=== PATIENT | female | born 1950 | race Caucasian/White ===

== ENCOUNTER 2016-03-31 14:06 | Outpatient (CLI) | payer OTHER | END 2016-03-31 14:07 | disposition home or self-care (01) | DX: Z12.31 Encounter for screening mammogram for malignant neoplasm of breast (principal); Z98.82 Breast implant status ==

== ENCOUNTER 2016-09-23 13:43 | Outpatient (CLI) | payer OTHER | END 2016-09-23 13:44 | disposition home or self-care (01) | LOC: LAB.F 13:43 | PROVIDERS: ATTEND Family Medicine | DX: Z11.59 Encounter for screening for other viral diseases (principal) | CPT/HCPCS: 36415; 86317 ==

== ENCOUNTER 2018-07-13 14:38 | Outpatient (CLI) | payer MEDICARE ==
--- NOTE | 2018-07-16 08:59 | Mammography Report ---
Reason: SCREENING MAMMO Procedure Date: 07/13/2018 Accession Number: [id number] / [id number] Procedure: MGN - Screening Mammo Dig w/Implants CPT Code: FULL RESULT: EXAM: Screening Mammo Dig w/Implants DATE: 07/13/2018 3:17 PM CLINICAL HISTORY: Screening encounter. History of bilateral silicone implant, placed in 1990. TECHNIQUE: (B) - Bilateral CC and MLO views were obtained. All views were obtained in standard and implant displaced fashion. COMPARISON: 03/31/2016 through 07/07/2011 PARENCHYMAL PATTERN: (A) - The breast(s) demonstrate(s) scattered fibroglandular densities. FINDINGS: Bilateral silicone implants are redemonstrated and stable in shape. There are no suspicious masses, calcifications, or areas of distortion. IMPRESSION: Benign findings. BI-RADS category 2. RECOMMENDATION: (ANNUAL) - Recommend routine annual screening mammography. BI-RADS CATEGORY: (2) - Benign Findings. STANDARD QUALIFYING STATEMENTS: 1. This examination was not reviewed with the aid of Computer-Aided Detection (CAD). 2. A negative or benign imaging report should not preclude biopsy if clinically suspicious findings are present. 3. Dense breasts may obscure an underlying neoplasm. 4. This examination was reviewed without the aid of 3D breast imaging (tomosynthesis).
== END 2018-07-13 14:39 | disposition home or self-care (01) ==
LOC: DI.N 14:38
DX: Z12.31 Encounter for screening mammogram for malignant neoplasm of breast (principal); Z98.82 Breast implant status
CPT/HCPCS: 77067

== ENCOUNTER 2018-11-09 10:45 | Outpatient (CLI) | payer MEDICARE ==
--- NOTE | 2018-11-13 11:53 | DEXA Report ---
Reason: OSTEOPOROSIS SCREENING Procedure Date: 11/09/2018 Accession Number: [id number] / [id number] Procedure: DEX - Dexa Spine and/or Hip CPT Code: FULL RESULT: EXAM: Dexa Spine and/or Hip DATE: 11/09/2018 11:43 AM CLINICAL HISTORY: OSTEOPOROSIS SCREENING TECHNIQUE: Dual energy x-ray absorptiometry (DXA) was performed on a [employer] System. Regions measured are the AP Spine, femoral neck, and if needed forearm. COMPARISON: None. In accordance with the International Society for Clinical Densitometry (ISCD) guidelines, data from previous exams may be reanalyzed using current recommendations and techniques. This is done to allow a more accurate basis for comparison with the current study. FINDINGS: The data for the lumbar spine is as follows: BMD (g/cm/cm) T-SCORE Z-SCORE REGION L1 0.896 -1.9 -0.9 L2 0.869 -2.8 -1.7 L3 0.938 -2.2 -1.1 L4 0.810 -3.2 -2.2 TOTAL 0.878 -2.5 -1.4 NOTE: All evaluable vertebrae are used for classification The data for the hip is as follows: BMD (g/cm/cm) T-SCORE Z-SCORE REGION Neck 0.796 -1.7 -0.6 TOTAL 0.809 -1.6 -0.7 NOTE: The femoral neck or total proximal femur, whichever is lowest, is used for classification. IMPRESSION: THE WHO CLASSIFICATION BASED ON THE INTERNATIONAL REFERENCE STANDARD IS OSTEOPOROSIS, REFERENCE LUMBAR SPINE. THE FRACTURE RISK IS HIGH. RECOMMENDATION: Patients with diagnosis of osteoporosis or osteopenia should have regular bone mineral density assessment. For those eligible for Medicare, routine testing is allowed once every 2 years. Testing frequency can be increased for patients who have rapidly progressing disease or for those who are receiving medical therapy to restore bone mass. COMMENT: World Health Organization (WHO) definitions for osteoporosis and osteopenia: NORMAL BMD: T-score at -1.0 or higher, fracture risk is low OSTEOPENIA BMD: T-score between -1.0 and -2.5, fracture risk is increased. OSTEOPOROSIS BMD: T-score at -2.5 or lower, fracture risk is high. National Osteoporosis Foundation recommends: 1. Obtain adequate dietary calcium (at least 1200 mg per day) and vitamin D (400-800 international units per day). 2. Participate, as appropriate, in regular weightbearing and muscle-strengthening exercise. 3. Avoid tobacco use and reduce alcohol and caffeine intake. 4. For more detailed information see the website at www.NOF.org.
== END 2018-11-09 10:46 | disposition home or self-care (01) ==
LOC: DI 10:45
PROVIDERS: ATTEND Nurse Practitioner Family
DX: Z13.820 Encounter for screening for osteoporosis (principal); M81.0 Age-related osteoporosis without current pathological fracture
CPT/HCPCS: 77080

== ENCOUNTER 2019-01-17 07:46 | Outpatient (CLI) | payer MEDICARE ==
[2019-01-17 10:40] LABS: BASOPHILS # (AUTO) 0.1 10^3/uL (0.0-0.1); BASOPHILS % (AUTO) 1.3 %; EOSINOPHILS # (AUTO) 0.2 10^3/uL (0.0-0.7); EOSINOPHILS % (AUTO) 3.6 %; HGB - HEMOGLOBIN 11.6 g/dL (12.0-16.0); LYMPHOCYTES # (AUTO) 0.6 10^3/uL (1.5-3.5); LYMPHOCYTES % (AUTO) 10.4 %; MEAN CORPUSCULAR HEMOGLOBIN 30.7 pg (27.0-31.0); MEAN CORPUSCULAR HGB CONC 31.1 g/dL (32.0-36.0); MEAN CORPUSCULAR VOLUME 98.7 fL (81.0-99.0); MEAN PLATELET VOLUME 10.4 fL (7.9-10.8); MONOCYTES # (AUTO) 0.7 10^3/uL (0.0-1.0); NEUTROPHILS # (AUTO) 4.4 10^3/uL (1.5-6.6); NEUTROPHILS % (AUTO) 73.2 %; PLT - PLATELET COUNT 313 10^3/uL (130-450); RED BLOOD COUNT 3.78 10^6/uL (4.20-5.40); RED CELL DISTRIBUTION WIDTH 13.3 % (12.0-15.0); WHITE BLOOD COUNT 6.1 x10^3/uL (4.8-10.8)
[2019-01-17 10:56] LABS: HB2 TOTAL 12.1 g/dL; HEMOGLOBIN A1C 0.35 g/dL; HEMOGLOBIN A1C % 4.8 % (4.6-6.2)
[2019-01-17 10:57] LABS: ALBUMIN/GLOBULIN RATIO 1.3 (1.0-2.2); ALKALINE PHOSPHATASE 71 IU/L (42-121); ALT ALANINE AMINOTRANSFERASE 19 IU/L (10-60); AST ASPARTATE AMINOTRANSFERASE 18 IU/L (10-42); BILIRUBIN,TOTAL 0.9 mg/dL (0.2-1.0); BUN - BLOOD UREA NITROGEN 15 mg/dL (6-20); CALCIUM 8.8 mg/dL (8.5-10.3); CARBON DIOXIDE - CO2 29 mmol/L (21-32); CHLORIDE 103 mmol/L (101-111); CHOL/HDL RATIO 2.4 (<4.4); CHOLESTEROL 176 mg/dL; CREATININE 0.7 mg/dL (0.4-1.0); GFR - MDRD 84 (>89); GLUCOSE 91 mg/dL (70-100); HDL CHOLESTEROL 72 mg/dL; LDL CHOLESTEROL,CALCULATED 76 mg/dL; LDL/HDL RATIO 1.1 (<4.4); SODIUM 138 mmol/L (135-145); VLDL CHOLESTEROL 28 mg/dL
[2019-01-17 11:02] LABS: THYROID STIMULATING HORMONE 3.07 uIU/mL (0.34-5.60)
[2019-01-17 11:04] LABS: FREE T4 (FREE THYROXINE) 0.81 ng/dL (0.58-1.64)
== END 2019-01-17 07:47 | disposition home or self-care (01) ==
LOC: LAB.S 07:46
PROVIDERS: ATTEND Nurse Practitioner Family
DX: Z00.00 Encounter for general adult medical examination without abnormal findings (principal)
CPT/HCPCS: 36415; 80053; 80061; 83036; 83721; 84439; 84443; 85025

== ENCOUNTER 2020-01-06 12:14 | Outpatient (CLI) | payer MEDICARE, OTHER | END 2020-01-06 12:15 | disposition home or self-care (01) | LOC: COV 12:14 | PROVIDERS: ATTEND Family Medicine | DX: R05 Cough (principal); R53.83 Other fatigue; J02.9 Acute pharyngitis, unspecified; R09.81 Nasal congestion; Z20.828 Contact with and (suspected) exposure to other viral communicable diseases ==

== ENCOUNTER 2022-09-22 11:23 | Outpatient (CLI) | payer MEDICARE, OTHER ==
[2022-09-22 14:47] LABS: HCT - HEMATOCRIT 45.1 % (37.0-47.0); HGB - HEMOGLOBIN 14.6 g/dL (12.0-16.0); MEAN CORPUSCULAR HEMOGLOBIN 30.7 pg (27.0-31.0); MEAN CORPUSCULAR HGB CONC 32.4 g/dL (32.0-36.0); MEAN CORPUSCULAR VOLUME 94.9 fL (81.0-99.0); MEAN PLATELET VOLUME 10.7 fL (7.9-10.8); RED BLOOD COUNT 4.75 10^6/uL (4.20-5.40); RED CELL DISTRIBUTION WIDTH 12.9 % (12.0-15.0); WHITE BLOOD COUNT 7.8 x10^3/uL (4.8-10.8)
[2022-09-22 15:36] LABS: % IRON SATURATION 27 % (20-50); IRON 104 ug/dL (28-170); TOTAL IRON BINDING CAPACITY 392 ug/dL (250-450); TRANSFERRIN 280 mg/dL (192-382)
== END 2022-09-22 11:24 | disposition home or self-care (01) ==
LOC: LAB.S 11:23
PROVIDERS: ATTEND Internal Medicine
DX: R53.83 Other fatigue (principal)
CPT/HCPCS: 36415; 82728; 83540; 84466; 85027

== ENCOUNTER 2023-02-22 12:32 | Emergency (ER) | payer MEDICARE, OTHER ==
[2023-02-22] MEDS ORDERED: ONDANSETRON 4 MG/2 ML VIAL IVP STA (13:05)
[2023-02-22] MEDS ORDERED: SODIUM CHLORIDE 0.9% 1,000 ML IV STA (13:05)
--- NOTE | 2023-02-22 13:29 | ED Physician Documentation ---
History of Present Illness - Stated complaint Stated Complaint: SLURRED SPEACH/DIZZY - Chief complaint Chief Complaint: Neuro - History obtained from History obtained from: Patient - Additonal information Additional information: Patient is a 72-year-old female presenting for evaluation of generally feeling off since about 1130. Patient states she was using her phone and working on updating some birthdays when she felt like she was getting confused with what she was doing. She tried to stand up and reports feeling generally weak. She reports feeling a little bit of dizziness but is having difficulty describing it. Reports it causes some associated nausea. Denies a headache. Does not take a blood thinner. Per the at the bedside her speech has been clear but it seems that she is focusing more on what she is saying and needs to think about it a little bit more than what she would normally. Patient reports feeling fine this morning. Denies changes to her vision. Feels unsteady on her feet. No chest pain, shortness of air, abdominal symptoms. Review of Systems Constitutional: denies: Fever Cardiac: denies: Chest pain / pressure Respiratory: denies: Dyspnea GI: denies: Abdominal Pain Neurologic: reports: Generalized weakness. denies: Headache, Head injury PD PAST MEDICAL HISTORY - Past Medical History Past Medical History: No - Past Surgical History Past Surgical History: No - Present Medications Home Medications: Ambulatory Orders Medication Instructions Recorded Confirmed Atorvastatin [Lipitor] 10 mg PO DAILY 02/22/23 02/22/23 Escitalopram [Lexapro] 10 mg PO DAILY 02/22/23 02/22/23 - Allergies Allergies/Adverse Reactions: Allergies Allergy/AdvReac Type Severity Reaction Status Date / Time No Known Drug Allergies Allergy Verified 02/22/23 12:50 - Social History Does the pt smoke?: No Smoking Status: Never smoker Does the pt drink ETOH?: No Does the pt have substance abuse?: No - Immunizations Immunizations are current?: Yes - POLST Patient has POLST: No PD ED PE NORMAL - General General: Alert and oriented X 3, No acute distress, Well developed/nourished - HEENT HEENT: Atraumatic, PERRL, EOMI, Moist mucous membranes, Pharynx benign - Neck Neck: Supple, no meningeal sign - Cardiac Cardiac: RRR, Strong equal pulses - Respiratory Respiratory: No respiratory distress, Clear bilaterally - Abdomen Abdomen: Normal bowel sounds, Soft, Non tender, Non distended - Derm Derm: Warm and dry - Extremities Extremities: No deformity - Neuro Neuro: Alert and oriented X 3, termite helper 2-12 intact, No motor deficit, No sensory deficit, Normal speech, Other (Normal qtyjdo-st-uvow bilaterally) Results - Vitals Vitals: Oxygen O2 Source Room air - EKG (time done) 1309 EKG releavant findings:: EKG personally interpreted by author of this note. Relevant findings are: Rate 79, normal sinus rhythm, no STEMI - Labs Labs: Laboratory Tests 02/22/23 02/22/23 02/22/23 13:29 13:29 16:30 WBC 7.3 RBC 4.28 Hgb 13.2 Hct 40.2 MCV 93.9 MCH 30.8 MCHC 32.8 RDW 13.4 Plt Count 296 MPV 9.6 Neut # (Auto) 5.9 Lymph # (Auto) 0.6 L [place] # (Auto) 0.6 Eos # (Auto) 0.1 Baso # (Auto) 0.0 Absolute Nucleated RBC 0.00 Nucleated RBC % 0.0 Sodium 134 L Potassium 4.0 Chloride 101 Carbon Dioxide 28 Anion Gap 5.0 L BUN 12 Creatinine 0.6 Estimated GFR (MDRD) 99 Glucose 111 H Calcium 9.4 Total Bilirubin 0.5 AST 16 ALT 18 Alkaline Phosphatase 93 Total Protein 6.9 Albumin 4.1 Globulin 2.8 Albumin/Globulin Ratio 1.5 Lipase 14 Urine Color YELLOW Urine Clarity CLEAR Urine pH 5.5 Ur Specific [place] <=1.005 Urine Protein NEGATIVE Urine Glucose (UA) NEGATIVE Urine Ketones NEGATIVE Urine Occult Blood TRACE-INTA Urine Nitrite NEGATIVE Urine Bilirubin NEGATIVE Urine Urobilinogen 0.2 (NORMAL) Ur Leukocyte Esterase NEGATIVE Ur Microscopic Review NOT INDICATED Urine Culture Comments NOT INDICATED PD Medical Decision Making - ED course Complexity details: reviewed results, re-evaluated patient, d/w patient, d/w family ED course: Pt reports dizziness, nausea, feeling off, feeling like having to think about her words more starting at 1130 today. Pt still reports feeling her symptoms but speech is fluid, clear, and she is answering questions and providing history appropriately. No focal deficits noted with NIH 0. Thus do not feel she is a TPA candidate. CT head and CTA angio head/neck unremarkable. Pt felt claustrophobic in CT so given a dose of ativan. EKG with no arrhythmia. CBC and chemistries with no significant findings. Pt feeling better here. MRI negative for ischemia. ?TIA vs peripheral vertigo. Given age and risk factors of hyperllipidemia recommend aspirin until pt follow up with PCP. Pt feels back to baseline here. Counseled on concerning symptoms to return for. Aware of need for outpatient thyroid U/S. 1736 - Patient has returned from MRI and reports feeling better. Departure - Departure Disposition: 01 Home, Self Care Clinical Impression: Dizziness, Difficulty with speech Condition: Stable Instructions: ED Transient Ischemic Attack, ED Vertigo Unspecified Comments: Your testing today does not show signs of a stroke. Although you were speaking clearly when you arrived here you did express that you seem to be having some trouble with getting her words out. Your symptoms could be related to a mini stroke which does not show up on imaging. I would recommend we start you on a baby aspirin which you should take daily until you are seen for follow-up by your primary care provider. If at anytime you develop any new or worsening symptoms please consider return to the emergency department. Your CT scan had an incidental finding which is a Right thyroid mass. Please follow-up with your primary care provider as you may need an outpatient ultrasound. Forms: PCP List Discharge Date/Time: 02/22/23 18:56 NIHSS - Level of Consciousness Level of consciousness: (0) Alert, Keenly responsive LOC Questions: (0) Answers both Q's correct LOC Commands: (0) Performs both correctly - Gaze Best Gaze: (0) Normal - Visual Visual: (0) No loss - Facial Palsy Facial Palsy: (0) Normal, symmetrical movement - Motor Arms (both separate) Motor Arm (right): (0) No drift Motor Arm (left): (0) No drift - Motor Legs (both separate) Motor Leg (right): (0) No drift Motor Leg (left): (0) No drift - Limb Ataxia Limb Ataxia: (0) Absent - Sensory Sensory: (0) Normal - Best Language Best Language: (0) No aphasia - Dysarthria Dysarthria: (0) Normal - Extinction and Inattention (formally neg Extinction and inattention: (0) No abnormality - Total Score/Results Total Score/Result: 0
[2023-02-22 13:41] LABS: BASOPHILS % (AUTO) 0.4 %; EOSINOPHILS # (AUTO) 0.1 10^3/uL (0.0-0.7); EOSINOPHILS % (AUTO) 0.8 %; HCT - HEMATOCRIT 40.2 % (37.0-47.0); HGB - HEMOGLOBIN 13.2 g/dL (12.0-16.0); LYMPHOCYTES # (AUTO) 0.6 10^3/uL (1.5-3.5); LYMPHOCYTES % (AUTO) 8.5 %; MEAN CORPUSCULAR HEMOGLOBIN 30.8 pg (27.0-31.0); MEAN CORPUSCULAR HGB CONC 32.8 g/dL (32.0-36.0); MEAN CORPUSCULAR VOLUME 93.9 fL (81.0-99.0); MEAN PLATELET VOLUME 9.6 fL (7.9-10.8); MONOCYTES # (AUTO) 0.6 10^3/uL (0.0-1.0); MONOCYTES % (AUTO) 8.5 %; NEUTROPHILS # (AUTO) 5.9 10^3/uL (1.5-6.6); NEUTROPHILS % (AUTO) 81.1 %; PLT - PLATELET COUNT 296 10^3/uL (130-450); RED BLOOD COUNT 4.28 10^6/uL (4.20-5.40); RED CELL DISTRIBUTION WIDTH 13.4 % (12.0-15.0); WHITE BLOOD COUNT 7.3 x10^3/uL (4.8-10.8)
[2023-02-22 14:01] LABS: ALBUMIN 4.1 g/dL (3.2-5.5); ALBUMIN/GLOBULIN RATIO 1.5 (1.0-2.2); BILIRUBIN,TOTAL 0.5 mg/dL (0.2-1.0); CALCIUM 9.4 mg/dL (8.5-10.3); CREATININE 0.6 mg/dL (0.6-1.3); TOTAL PROTEIN 6.9 g/dL (6.4-8.9)
[2023-02-22] MEDS ORDERED: LORazepam 2 MG/ML VIAL IVP STA (14:44)
--- NOTE | 2023-02-22 15:22 | CT Report ---
PROCEDURE: HEAD WO INDICATIONS: dizzy/feeling off TECHNIQUE: Noncontrast 4.5 mm thick angled axial sections acquired from the foramen magnum to the vertex. For r adiation dose reduction, the following was used: automated exposure control, adjustment of mA and/or kV according to patient size. COMPARISON: None. FINDINGS: Image quality: Excellent. The ventricular system and cortical sulci demonstrate atrophy, consistent for patient's stated age. There are areas of hypodensity in the periventricular and subcortical white matter. There is no acut e intra or extra-axial fluid collection. No acute hemorrhage, mass lesion or midline shift. Brainst em is unremarkable. Globes are symmetrical. Sinuses are aerated. Osseous structures are intact. IMPRESSION: 1. No acute intracranial process. 2. Mild atrophy and chronic microvascular ischemic changes. Reviewed by: Xuan Dominguez MD on 02/22/2023 3:20 PM PST Approved by: Xuan Dominguez MD on 02/22/2023 3:20 PM PST Station ID: [id number]
[2023-02-22] MEDS ORDERED: iohexoL-300 100 ML VIAL IVP ONE (15:35)
[2023-02-22 16:41] LABS: BILIRUBIN,URINE NEGATIVE (NEGATIVE); GLUCOSE, URINE (UA) NEGATIVE (NEGATIVE); KETONES,URINE (UA) NEGATIVE (NEGATIVE); LEUKOCYTE ESTERASE, URINE NEGATIVE (NEGATIVE); NITRITE,URINE NEGATIVE (NEGATIVE); OCCULT BLOOD,URINE TRACE-INTA (NEGATIVE); PH,URINE 5.5 PH (5.0-7.5); PROTEIN,URINE NEGATIVE (NEGATIVE); UROBILINOGEN,URINE 0.2 (NORMAL) E.U./dL (NORMAL)
[2023-02-22 16:42] LABS: CLARITY,URINE CLEAR (CLEAR)
--- NOTE | 2023-02-22 16:50 | CT Report ---
PROCEDURE: CT Angio Head/Neck INDICATIONS: dizzy/feeling off TECHNIQUE: After the administration of intravenous contrast, 1 mm thick sections acquired from the aortic arch t hrough the [place]. 3-dimensional nnsmycn-znqgsrvap-zjkvnwddlx (MIP) and/or volume renderin g reformats were acquired of the central intracranial vasculature and neck separately. For radiation dose reduction, the following was used: automated exposure control, adjustment of mA and/or kV acco rding to patient size. COMPARISON: CT head 02/22/2023 FINDINGS: Image quality: Diagnostic. HEAD CT: Please see separately dictated CT head report of 02/22/2023 for further evaluation. HEAD CT ANGIOGRAP HY: Anterior circulation: Intracranial internal carotid arteries are normal in size and flow. The flow within the paired anterior cerebral arteries is normal and symmetric. The flow within the middle cer ebral arteries is normal and symmetric. The anterior communicating artery is seen. No aneurysms are seen. Posterior circulation: Left vertebral artery dominance. Visualized portions of the vertebral arteries demonstrate normal caliber, and join to form a normal appearing basilar artery. Flow within the pos terior cerebral arteries is normal and symmetric. No aneurysms are seen. NECK CT ANGIOGRAPHY: Carotid system: The great vessels demonstrate a conventional anatomy as they arise from the aortic a rch. The origins of the common carotid arteries appear patent. The common carotid arteries demonstr ate normal caliber and courses. The bifurcation regions are both widely patent. The internal caroti d arteries demonstrate normal calibers and courses. Posterior circulation: The origins of the vertebral arteries both appear widely patent. The more garrett perior extracranial portions of both vertebral arteries also demonstrate normal courses and calibers. They join to form a normal appearing basilar artery. Soft tissues: Prominent focus of heterogeneous masslike density is present within the right thyroid l obe. No priors. Bones: No suspicious bony lesions. Visualized cervical spine appears normally aligned. IMPRESSION: No areas of hemodynamically significant stenosis, vascular occlusion or aneurysmal dilation within th e anterior circulation. No areas of hemodynamically significant stenosis, vascular occlusion or aneurysmal dilation within th e posterior circulation. There are no areas of hemodynamically significant stenosis, vascular occlusion or aneurysmal dilation within the neck vasculature. Right thyroid mass. Thyroid ultrasound may be obtained on nonemergent basis for further evaluation. The estimate of stenosis included in the report of the imaging study was calculated using the NASCET method Reviewed by: Xuan Dominguez MD on 02/22/2023 4:48 PM PST Approved by: Xuan Dominguez MD on 02/22/2023 4:48 PM PST Station ID: [id number]
--- NOTE | 2023-02-22 17:52 | MRI Report ---
PROCEDURE: BRAIN WO INDICATIONS: SLURRED SPEECH TECHNIQUE: Noncontrast axial T1 spin echo, axial T2 fast spin echo, sagittal and axial FLAIR, coronal T2 fast sp in echo, axial gradient echo, axial diffusion and ADC through the brain. COMPARISON: Correlation is made with CTs performed earlier in the day. FINDINGS: Image quality: Motion artifact is noted. Images were repeated, with some improvement. CSF Spaces: Basal cisterns are patent. No extra-axial fluid collections. Ventricles are normal in size and shape. Brain: No intracranial masses or hemorrhage. Andrew/white matter interface is normal. Brainstem appe ars normal. Diffusion-weighted images demonstrate no acute ischemic insult. No chronic ischemic ins ults. Normal intravascular flow voids are present. Skull and face: Calvarium has normal marrow signal. Orbits appear normal. Sinuses: Sinuses and mastoids are clear. IMPRESSION: No findings of acute or subacute infarction are seen. Age-appropriate brain parenchymal volume loss and chronic small vessel ischemic change can be seen. Reviewed by: Francisco Tapia MD on 02/22/2023 4:50 PM [place] Approved by: Francisco Tapia MD on 02/22/2023 4:50 PM [place] Station ID: [id number]
[2023-02-22 18:44] VITALS: BP 131/83; O2SAT 95
== END 2023-02-22 18:56 | disposition home or self-care (01) ==
LOC: ED 12:32
DX: R47.81 Slurred speech (principal); R42 Dizziness and giddiness
CPT/HCPCS: 36415; 70450; 70496; 70498; 70551; 80053; 81003; 83690; 85025; 93005; 96374; 96375; 99283; 99284; J2060; Q9967; 81001; 87086

== ENCOUNTER 2023-04-20 10:31 | Outpatient (CLI) | payer MEDICARE, OTHER ==
--- NOTE | 2023-04-20 11:22 | Sleep Patient Instructions ---
Sleep Center Visit Summary - Patient Visit Information Reason for Visit: Initial consult for evaluation of sleep disordered breathing and other sleep issues. - Patient Instructions Instructions Attached: Sleep Study Additional Instructions: You will be completing a sleep study, either an in-lab polysomnography (PSG) or home sleep study (HST). You will follow-up in the sleep care office after the sleep study is completed to hear the results and talk about therapy, if needed. You will be called by our office staff to schedule this appointment, but you may contact us with any questions. - Clinic Information Contact: [facility] [address] [place] [address] [email or web address] T: [phone]
--- NOTE | 2023-04-20 11:27 | SLEEP CARE CONSULTATION ---
Information from patient questionnaire entered by Rozina Gann. I have reviewed and concur with the information entered by Rozina Gann. This document represents the service I personally performed and the decisions made by me, Fernanda Mtz ARNP. History of Present Illness Service Date and Time: 04/20/2023 1031 Reason for Visit: New patient Chief Complaint: reports: Snoring, Observed pauses in breathing, Fatigue, Frequent awakenings at night Date of Onset: 2-3YRS Usual bedtime: 9-10PM Time it takes to fall asleep: 5MIN Snores at night: Yes Observed to quit breathing while asleep: Yes (can't recount dream but does remember she dreamt) Sleeps alone due to snoring: No Number of times waking at night: 1-2 Reasons for waking at night: reports: Snoring, Gasping for air (possibly, not sure), Bathroom, Other (unknown reasons). denies: Choking Toss, Turn, or Twitch while sleeping: Yes Recalls having dreams: Yes Usually gets out of bed at: 6-7AM Feels refreshed in the morning: Yes Morning headache: Yes (1 time a week; last couple hours) Sleepy or fatigued during the day: Yes Ever fallen asleep while driving: No Takes day naps: Yes (1-2 daily; 45-60 minutes each time) Dreams during day naps: No Prior sleep studies: No Additional HPI information: I had the pleasure of seeing YOSELIN JOEL today regarding the possibility of her having a sleep disorder. Her current complaints are snoring, observed pauses in breathing, fatigue and frequent night awakenings. She says that they thought she had a TIA and her blood pressure was very high. Later they think it was not a TIA but a possible migraine. She has been told that she snores by her ex- boyfriend and also that she stopped breathing during the night. She has woke herself up with her own snoring and occasionally with possible gasps. The neurologist wanted her to have a sleep study to see if this is contributing. She says she wakes up tired, is tired throughout the day and takes a nap or two every day. She occasionally wakes up with a headache. She states her son and her sister are both treated for sleep apnea with CPAP machines. - Parasomnia Symptoms Ever been unable to move upon waking from sleep: Yes (once only) Walks in sleep: No Talks in sleep: No Ever acted out dreams in sleep: Yes (occasional kick out) Ever felt weak in the knees when startled or emotional: Yes (has strong startle reflex; has not fallen to ground) Bothered by creepy, crawly, restless sensations in legs: No Problems with memory or concentration: No Subjective Initial [place] Sleepiness Scale score: 14 (03/17/23) Past Medical History Past Medical History: reports: Hypertension, Anemia, Other (HYPERLIPIDEMIA; hiatal hernia) Social History The patient's occupation is a RETIRED. Patient is Single and lives in . Have you smoked in the past 12 months: No (social smoker, quit about 5 years ago) Cigarettes per day (20/pack): 3 Years of smokin Smoking Pack Years: 1.5 Alcohol use: Yes Alcohol amount and frequency: 2-3BEERS ABOUT 3X A WEEK Caffeine use: Yes Caffeine amount and frequency: 2 CUPS COFFEE QD Family History Family history of sleep disordered breathing: Yes Family Hx Sleep Apnea: Sibling: Snoring, Sleep apnea - Treated Allergies and Home Medications Known drug allergies: No Drug allergies reviewed: Yes Home medication list reviewed: Yes Allergy and home medication list: Allergies No Known Drug Allergies Allergy (Verified 04/18/23 13:28) Home Medications Medication Instructions Recorded Confirmed Last Taken Type Atorvastatin [Lipitor] 10 mg PO DAILY 02/22/23 04/20/23 Unknown History Escitalopram [Lexapro] 10 mg PO DAILY 02/22/23 04/20/23 Unknown History Review of Systems Weight gain over past 5 years: 25 Cardiovascular: reports: high blood pressure Respiratory: reports: shortness of breath Gastrointestinal: reports: heartburn Neurological: reports: headaches Psychiatric: denies: anxiety, depression Ear/Nose/Throat: reports: tonsillectomy, wisdom teeth removed Musculoskeletal: reports: joint pain, neck pain, back pain Physical Exam Vital signs obtained and entered by: FERNANDA VALDEZ Blood Pressure: 123/86 Cuff size: regular (right arm) Heart Rate: 75 O2 Saturation: 97 Height: 5 ft 7 in Weight: 183 lb 12.8 oz Body Mass Index: 28.8 BMI Classification: Overweight Neck circumference: 15 (inches) Mouth and throat: narrow oropharynx Soft palate: long Hard palate: normal Uvula: normal Uvula visualization: 0% Mallampati Class IV Tongue: enlarged in size with teeth robert on lateral edges Tonsils: absent bilaterally Neck: normal w/o lymphadenopathy or thyromegaly Heart: regular rate and rhythm Lungs: clear bilaterally Impression and Plan 1. Suspected Obstructive Sleep Apnea-Hypopnea Syndrome, as suggested by a history of irregular snoring, observed cessation of breath while asleep, gasping or choking in sleep, morning headache, frequent awakening during the night, unrefreshed sleep, and excessive daytime sleepiness. Narrow oropharynx and obesity are common predisposing factors for obstructive sleep apnea-hypopnea syndrome. I recommend proceeding to polysomnography to confirm the diagnosis and to assess severity. If the patient has significant sleep disordered breathing, a manual CPAP titration study will also be performed to find the optimal treatment pressure. I informed the patient of what the sleep studies involve and after some discussion, obtained agreement to proceed. The pathophysiology of obstructive sleep apnea-hypopnea syndrome was discussed with the patient and health risks of cardiovascular and cerebrovascular disease if not treated. Risks of drowsy driving discussed in detail and patient advised to avoid long distance driving and to pot puller at the first sign of drowsiness. Patient a greed to plan. * Schedule polysomnography * Avoid long distance driving or driving when feeling sleepy. * Avoid alcohol, sedative and muscle relaxant around bedtime. * Attempt to lose weight. * Review instructions provided by trained office staff on how to prepare for the sleep study. * Return for follow-up after sleep study completed. Counseling Topics: Weight loss health impact Plan: PSG Visit Type: In Office Time Spent with Patient (minutes): 33 Provider Statement: I spent 100% of the Face to Face Visit with the patient with greater than 50% spent counseling the patient and coordination of care.
[2023-04-20 11:30] VITALS: BP 123/86; O2SAT 97
== END 2023-04-20 10:32 | disposition home or self-care (01) ==
LOC: SC 10:31
PROVIDERS: ATTEND Nurse Practitioner Family
DX: G47.10 Hypersomnia, unspecified (principal); R06.83 Snoring; R06.81 Apnea, not elsewhere classified; G47.8 Other sleep disorders; R51.9 Headache, unspecified; E66.3 Overweight; Z68.28 Body mass index [BMI] 28.0-28.9, adult; Z87.891 Personal history of nicotine dependence
CPT/HCPCS: 99203; G0463; 99212

== ENCOUNTER 2023-05-22 19:20 | Outpatient (CLI) | payer MEDICARE, OTHER | END 2023-05-22 19:21 | disposition home or self-care (01) | LOC: SC 19:20 | PROVIDERS: ATTEND Nurse Practitioner Family | DX: I10 Essential (primary) hypertension (principal); G47.33 Obstructive sleep apnea (adult) (pediatric) | CPT/HCPCS: 95810 ==

== ENCOUNTER 2023-07-26 10:03 | Outpatient (CLI) | payer MEDICARE, OTHER ==
--- NOTE | 2023-07-26 10:34 | Sleep Patient Instructions ---
Sleep Center Visit Summary - Patient Visit Information Reason for Visit: Sleep study follow-up - Patient Instructions Additional Instructions: You are to start Positional therapy to control your sleep apnea. You may obtain positional belts or other commercial devices online. You may also use pillows to position yourself on your side or a T shirt with balls sewn into the back to help keep you on your side to sleep. We would like to follow up with you in a month to check effectiveness of therapy. Please call office to schedule a follow up appointment in the sleep care office as needed. - Clinic Information Contact: [facility] [address] [place] [address] [email or web address] T: [phone]
--- NOTE | 2023-07-26 10:41 | SLEEP CARE CONSULTATION ---
Information from patient questionnaire entered by Rozina Gann. I have reviewed and concur with the information entered by Rozina Gann. This document represents the service I personally performed and the decisions made by , Fernanda Mtz ARNP. History of Present Illness Service Date and Time: 07/26/2023 1003 Initial Aurora Sleepiness Scale score: 14 (03/17/23) Current Aurora Sleepiness Scale score: 9 (07/26/23) Additional HPI information: YOSELIN JOEL returns for follow up and results of the recently performed polysomnography. The sleep study showed mild obstructive sleep apnea with an average AHI of 10.5 and santo oxygen saturation of 85%. I explained the pathophysiology behind obstructive sleep apnea. We then spent quite a bit of time discussing different treatment options. For mild obstructive sleep apnea, surgery and oral appliance are alternatives to nasal CPAP therapy but in moderate or severe cases, nasal CPAP is the most effective and reliable treatment. Because apnea is primarily in supine position, then positional management therapy could be effective. Methods discussed such as positioning with pillows, using a T-shirt with tennis balls in the back or commercial products that have a pillow format on back to prevent supine sleep. I reviewed the impact of weight changes on sleep apnea and strongly recommended losing weight. After some discussion, the patient opted to go with positional therapy. She sleeps on her side mostly and usually feels like she is well rested when she is on her sides. Sleep Study - Results Type of Sleep Study: Polysomnography (COMPLETED 05/22/23) Prior sleep studies: No Polysomnography/Home Sleep Study results: IMPRESSION: The quality of the study is good. The patient had reduced sleep efficiency due to frequent awakenings and a prolonged awakening in the middle of the night. The sleep architecture was abnormal for sleep fragmentation and reduced amount of time spent in REM and slow wave sleep (N3). Respiratory monitoring showed mild obstructive sleep apnea-hypopnea (AHI = 10.5) associated with frequent arousals, oxyhemoglobin desaturation and mild hypoxia (santo oxygen saturation of 83%). The respiratory events occurred almost exclusively during supine sleep (supine AHI = 46.7; non-supine = 2.36). Snore was light to moderate in intensity. There was no significant periodic leg movement of sleep. Cardiac rhythm was normal sinus rhythm without significant arrhythmia. No abnormal behavior (parasomnia) observed during the night. Allergies and Home Medications Known drug allergies: No Drug allergies reviewed: Yes Home medication list reviewed: Yes (no changes) Allergy and home medication list: Allergies No Known Drug Allergies Allergy (Verified 07/24/23 09:39) Review of Systems Review of systems same as previous: Yes (NO CHANGE) Physical Exam Vital signs obtained and entered by: ROZINA Leon MA Blood Pressure: 155/100 (RIGHT ARM) Cuff size: long Heart Rate: 80 O2 Saturation: 97 Height: 5 ft 7 in Weight: 185 lb 9.6 oz Body Mass Index: 29.0 BMI Classification: Overweight Impression and Plan 1. Obstructive Sleep Apnea-Hypopnea Syndrome, mild, with lowest oxygen saturation of 85%. Obviously this is the cause of the patients symptoms of unrefreshed sleep, and excessive daytime sleepiness. Patient states that she does not have and is not treated for hypertension. Since patients apnea is primarily in supine position, patient advised to try positional therapy and agreed with plan.She is also advised to lose weight as this will reduce snoring and apnea. I discussed with patient about follow up in 1-2 months to check effectiveness but she feels that she can call for follow up appointment if things are not going well and she needs a change in therapy. She will call as needed to make an appointment. We discussed ways to avoid supine sleep and she voiced understanding. 2. Hypoxemia, mild, with a santo oxygen saturation of 85% and 12.4 minutes spent under 90%. The baseline oxygen saturation was normal with an average oxygen saturation of 91%. 3. Overweight, unspecified. Currently patients BMI is 29. Obesity increases the risk of apnea, CPAP pressure requirements and overall health risks especially cardiovascular and diabetes. Thus patient is advised to continue to try to lose weight. * Positional therapy. * Attempt to lose weight. * Avoid supine sleep. * Return will be as needed per patient preference. Counseling Topics: Sleeping position, Weight loss health impact Follow up with Sleep Care in: as needed Visit Type: In Office Time Spent with Patient (minutes): 14 Provider Statement: I spent 100% of the Face to Face Visit with the patient with greater than 50% spent counseling the patient and coordination of care.
[2023-07-26 10:47] VITALS: BP 155/100; O2SAT 97
== END 2023-07-26 10:04 | disposition home or self-care (01) ==
LOC: SC 10:03
PROVIDERS: ATTEND Nurse Practitioner Family
DX: G47.33 Obstructive sleep apnea (adult) (pediatric) (principal); R09.02 Hypoxemia; E66.3 Overweight; Z68.29 Body mass index [BMI] 29.0-29.9, adult
CPT/HCPCS: 99212; G0463